=== PATIENT | female | born 1960 | race Caucasian/White ===

== ENCOUNTER → 2024-04-06 14:04 | Outpatient (BNVA) | payer OTHER, SELFPAY | PROVIDERS: Visit Provider Orthopaedic Surgery | DX: M54.9 Dorsalgia, unspecified (principal); Z01.818 Encounter for other preprocedural examination | CPT/HCPCS: 36415; 72110; 80053; 81003; 81015; 83036; 85025 ==

== ENCOUNTER → 2024-04-28 10:53 | Outpatient (BNVA) | payer OTHER, SELFPAY | PROVIDERS: Visit Provider Family Medicine | DX: Z01.818 Encounter for other preprocedural examination (principal) | CPT/HCPCS: 81003 ==

== ENCOUNTER → 2024-08-24 10:11 | Outpatient (BNVA) | payer MEDICARE, BC, SELFPAY | PROVIDERS: Visit Provider Orthopaedic Surgery | DX: M48.062 Spinal stenosis, lumbar region with neurogenic claudication (principal) | CPT/HCPCS: 99213 ==

== ENCOUNTER 2024-09-06 07:49 | Day surgery (SDC) | payer MEDICARE, BC, SELFPAY ==
[2024-09-06] VITALS (11 sets, daily range): BP systolic 110–131; BP diastolic 63–79; PULSE 54–74; RESP 15–22; TEMP 36.2–36.4; O2SAT 92–99; BMI 38.4
[2024-09-06] MEDS: sodium chloride 0.9% 1,000 ML 30 ML IV (08:19)
[2024-09-06 08:36] LABS: Glucose Point of Care 134 mg/dL (70-110)
--- NOTE | 2024-09-06 09:03 | W.PM.OPSUD ---
Surgery/Procedure H&P Update DATE OF PROCEDURE: September 06, 2024 DATE H&P PERFORMED: 08/24/24 H&P UPDATE INFORMATION: I have reviewed H&P completed within last 30 days, I have examined patient prior to procedure and No changes to prior documentation PREOP DIAGNOSIS: Lumbar stenosis with neurogenic claudication PLANNED PROCEDURE: Operation Date: 09/06/24 09:55 Proposed Procedures p Implantation of Neurostimulator Paddle(Not Applicable) - Ten Zhang DO s Insertion Neurostimulator Pulse Generato with battery(Not Applicable) - Ten Zhang DO
--- NOTE | 2024-09-06 09:25 | ANES.PREANE2 ---
Pre-Anesthetic Assessment Height/Weight: Height 5 ft 9 in Weight 260 lb Temp Pulse Resp BP Pulse Ox O2 Del Method 97.4 F L 74 18 126/79 98 Room Air 09/06/24 08:20 09/06/24 08:20 09/06/24 08:20 09/06/24 08:20 09/06/24 08:20 09/06/24 08:40 Preop Diagnosis: Lumbar stenosis with neurogenic claudication Operation Date: 09/06/24 09:55 Proposed Procedures p Implantation of Neurostimulator Paddle(Not Applicable) - Ten Zhang DO s Insertion Neurostimulator Pulse Generato with battery(Not Applicable) - Ten Zhang DO Was Beta Valeria taken within 24 hours: N/A Was Clonidine taken within 24 hours: N/A Last intake: Intake Last Liquid Date 09/05/24 Last Liquid Time 23:00 Last Solid Date 09/05/24 Last Solid Time 19:00 Social No alcohol and No tobacco Exam alert, oriented x 3, clear to auscultation bilaterally and regular rate & rhythm Airway Submandibular: within normal limits Cervical ROM: within normal limits Mallampati: Class II Dentition: full Anesthetic Plan ASA status: 3 Anesthesia: General Other: Patient states that she had prior vocal cord paralysis following intubation 2 years ago, was unable to speak for 2 weeks. She states she has been hoarse since this time. She has not seen an ENT NPO since yesterday History of type 2 diabetes on metformin. Preop BS 134 Hypertension on lisinopril Takes chronic tramadol for pain Patient has limited ambulation secondary to pain Discussed with patient that patient would require intubation due to prone positioning and surgical stimulation. We will plan on performing an LTA prior to intubation. She understands risk Plan for GETA Medications/Allergies Home Medications Medication Instructions Recorded Confirmed Last Taken Type estradiol 0.5 mg tablet 0.5 mg PO DAILY 04/28/24 09/05/24 09/05/24 History lisinopril 40 mg tablet 40 mg PO DAILY 04/28/24 09/05/24 09/05/24 History medroxyprogesterone 2.5 mg tablet 2.5 mg PO DAILY 04/28/24 09/05/24 09/05/24 History meloxicam 15 mg tablet 15 mg PO DAILY 04/28/24 09/05/24 09/03/24 History metformin 500 mg tablet 500 mg PO BID 04/28/24 09/05/24 09/05/24 History pregabalin 100 mg capsule 100 mg PO BID 04/28/24 09/05/24 09/05/24 History tramadol 50 mg tablet 50 mg PO DAILY PRN Pain (Scale 04/28/24 09/06/24 09/06/24 History Score 4-6) trazodone 50 mg tablet 50 mg PO .qhs 04/28/24 09/05/24 09/05/24 History Allergies Allergy/AdvReac Type Severity Reaction Status Date / Time No Known Allergies Allergy Unverified 09/06/24 08:13 Current Medications Generic Name Dose Route Start Last Admin Trade Name Freq PRN Reason Stop Dose Admin Sodium Chloride 1,000 mls @ 30 mls/hr 09/06/24 08:15 09/06/24 08:19 Sodium Chloride 0.9% IV 09/07/24 08:14 30 mls/hr .Q24H EMMY Administration PFSH Anesthesia Social History Smoking and tobacco/nicotine status: never used tobacco/nicotine Data Anesthesia Cardiac Studies: No Data to Display
[2024-09-06] MEDS: ceFAZolin 2,000 mg SDV 2000 MG IVP (09:39)
[2024-09-06] MEDS: VANCOMYCIN ADD-Vantage 1,000 MG VIAL 1000 MG XX (10:23)
[2024-09-06] MEDS: lidocaine-epi 1% 20 mL INJ INJECTION (10:23)
--- NOTE | 2024-09-06 10:53 | XR_ITS ---
WS: [id number] Thoracic spine, C-arm fluoroscopy views, 09/06/2024 Clinical Data: OR PICS Comparison: Thoracic spine, 02/07/2024 Findings: Dr. Zhang placed epidural stimulator leads into the lower thoracic space. XR/XR thoracic spine 2V 15027 Impression: Placement of thoracic epidural stimulator leads.
--- NOTE | 2024-09-06 10:57 | P.OP_ITS ---
Operative Report Date of procedure: September 06, 2024 Pre-op diagnosis: Lumbar stenosis with neurogenic claudication Post-op diagnosis: same Procedure done: 1. Neurostimulator paddle placement 2. Neurostimulator generator/battery placement Surgeon: Ten Zhang DO Estimated blood loss (mL): 25 Procedure: 1. Neurostimulator paddle placement 2. Neurostimulator generator/battery placement Patient is brought to the op suite after going anesthesia was placed in the prone position. All areas appear well-padded. Patient's prepped draped normal sterile fashion. Skin incision made over the T10-11 disc space. Subperiosteal dissection was made out to the transverse processes. Retractors were placed. Rongeur was used by down the spinous process. High-speed bur was used to take down part of the lamina as well as the medial aspect of facet joints. Curved curette was used to undermine where the ligament is and make a space and through the ligament. The Kerrison rongeur was then used to bite the ligament make a hole in the ligament to make space for the placement of the neurostimulator. The hockey-stick trial was then passed followed by placing the neurostimulator up to the T8 body. This was confirmed on C-arm guidance and confirmed with the [employer] rep. AP lateral fluoroscopy ensured that the stimulator was placed in good position. The wires were then sutured down the spinous process of T12. Skin incisions then made over the right flank and a pocket was made for the battery is going to go. The tunneler was then passed from the battery pocket to the location where the wires. The wires were then passed subcutaneously into the pocket. And then the wire was then placed in the battery and tucked underneath and sutured into position. With 0 Vicryl Monocryl suture. And then the laminectomy site was then closed with 0 Vicryl 2-0 Vicryl and Monocryl s uture. Sterile dressings were applied and patient was transferred to the PACU in stable condition.
[2024-09-06] MEDS: fentaNYL 50 mcg/mL INJ 2mL IVP (11:21)
[2024-09-06] MEDS: HYDROcodone-acetaminophen 5-325 mg Tablet 2 TAB PO (12:30)
--- NOTE | 2024-09-06 13:10 | ANE.PACU2 ---
Inpatient post-anesthesia follow up: Airway intact: Yes Vital signs: Temperature 97.6 F Pulse Rate 67 Respiratory Rate 18 Blood Pressure 125/67 Pulse Oximetry 97 Oxygen Delivery Me thod Room Air Oxygen Flow Rate Fraction of Inspir ed Oxygen Hydration adequate: Yes Nausea and vomiting: No Pain level: 1 Mental status: Baseline
== END 2024-09-06 13:10 | disposition home or self-care (01) ==
PROVIDERS: Visit Provider Orthopaedic Surgery
PROC: (CPT 63655; principal; 2024-09-06 09:35)
PROC: (CPT 63655; 2024-09-06 09:35)
DX: M48.062 Spinal stenosis, lumbar region with neurogenic claudication (principal); E11.9 Type 2 diabetes mellitus without complications; Z79.84 Long term (current) use of oral hypoglycemic drugs; I10 Essential (primary) hypertension; G89.29 Other chronic pain; Z79.891 Long term (current) use of opiate analgesic
CPT/HCPCS: 63655; 63685; 36416; 72070; 76000; 82962; C1713; J0330; J0690; J1100; J2405; J2704; J3010; J3370; J3490; J7030

== ENCOUNTER → 2024-09-19 15:17 | Outpatient (BNVA) | payer MEDICARE, BC, SELFPAY | PROVIDERS: Visit Provider Orthopaedic Surgery | DX: M48.062 Spinal stenosis, lumbar region with neurogenic claudication (principal) | CPT/HCPCS: 99024 ==

== ENCOUNTER → 2024-10-19 13:06 | Outpatient (BNVA) | payer MEDICARE, BC, SELFPAY | PROVIDERS: Visit Provider Orthopaedic Surgery | DX: M48.062 Spinal stenosis, lumbar region with neurogenic claudication (principal) | CPT/HCPCS: 72070; 72100; 99024 ==

== ENCOUNTER 2024-11-09 11:22 | Outpatient (CLI) | payer BC, MEDICARE, SELFPAY ==
--- NOTE | 2024-11-09 11:45 | MR_ITS ---
WS: [id number] MRI LUMBAR SPINE NONCONTRAST HISTORY: Back Pain COMPARISON: 02/16/2024 TECHNIQUE: Sagittal and axial multisequence imaging is submitted. Extensive fusion hardware in the lumbar spine. Posterior lumbar fusion extends from L2-S1. Anterior cervical fusion at L4-5 and L5-S1. Noted on a recent radiograph are fractures within the sacral pedicle screws. Posterior lumbar alignment appears near normal. Disc spaces are obscured by the hardware. Conus terminates normally at L1-2 disc level. L1-L2: Annular disc bulging with deformity of the thecal sac. Central disc protrusion. Ligamentum flavum and facet arthritis. Mild central and bilateral foraminal stenosis. There is mild distortion of the thecal sac secondary to the hardware. L2-L3: Large posterior laminectomy defect. No central stenosis. L3-L4: Large posterior laminectomy defects. No stenosis. L4-L5: Posterior laminectomy defects. No stenosis. There is mild clumping of the nerve roots in the thecal sac. L5-S1: No central stenosis or disc protrusion. Mild LEFT foraminal stenosis. MR/MR lumbar spine wo con* [id number] IMPRESSION: 1. Extensive posterior lumbar fusion hardware from L2-S1. Additional anterior fusion hardware at L4-5 and L5-S1. 2. Disc bulging and osteophytosis now present at L1-2. There is at least mild central and bilateral foraminal stenosis. Similar to the prior exam. 3. Large posterior laminectomy defects from L2-3 to L5-S1.
== END 2024-11-09 11:23 | disposition home or self-care (01) ==
PROVIDERS: Visit Provider Orthopaedic Surgery
DX: Z01.818 Encounter for other preprocedural examination (principal); M48.061 Spinal stenosis, lumbar region without neurogenic claudication; Z98.1 Arthrodesis status; M51.369 Other intervertebral disc degeneration, lumbar region without mention of lumbar back pain or lower extremity pain; M96.89 Other intraoperative and postprocedural complications and disorders of the musculoskeletal system; R93.7 Abnormal findings on diagnostic imaging of other parts of musculoskeletal system; M51.26 Other intervertebral disc displacement, lumbar region; M24.28 Disorder of ligament, vertebrae; M47.896 Other spondylosis, lumbar region; M48.07 Spinal stenosis, lumbosacral region
CPT/HCPCS: 36415; 72100; 72148; 80053; 81001; 83036; 85025; 99214

== ENCOUNTER → 2024-12-04 07:54 | Day surgery (SDC) | payer MEDICARE, BC, SELFPAY ==
[2024-12-04 07:52] VITALS: BMI 38.4
[2024-12-04 08:41] VITALS: BP 123/75; PULSE 50; RESP 16; TEMP 36.6; O2SAT 95
--- NOTE | 2024-12-04 08:52 | ANES.PREANE2 ---
Pre-Anesthetic Assessment Height/Weight: Height 1.75 m Weight 117.934 kg Temp Pulse Resp BP Pulse Ox O2 Del Method 97.8 F 50 L 16 123/75 95 Room Air 12/04/24 08:41 12/04/24 08:41 12/04/24 08:41 12/04/24 08:41 12/04/24 08:41 12/04/24 08:41 Preop Diagnosis: Lumbar stenosis with neurogenic claudication lumbar 2 to lumbar 3 decompres Operation Date: 12/04/24 09:30 Proposed Procedures p Lumbar Spine Decompression(Not Applicable) - Ten Zhang DO Last intake: Intake Last Liquid Date 12/03/24 Last Liquid Time 20:00 Last Solid Date 12/03/24 Last Solid Time 20:00 Airway Submandibular: within normal limits Cervical ROM: Other (pain with ROM limited on left side) Mallampati: Class III Dentition: chipped (bilateral front) Pulmonary None reported CV/HEM Arrythmia and Hypertension limited activity tolerance due to back pain. None reported Hepatic None reported GI None reported Metabolic Diabetes Mellitus and Hyperlipidemia (refuses statin) obesity Musc/skel Lower Back Pain Neuropsych None reported Anesthetic Plan ASA status: 3 Anesthesia: General Other Pertinent Information Patient states that she had prior vocal cord paralysis following intubation 2 years ago, was unable to speak for 2 weeks. She states she has been hoarse since this time. She has not seen an ENT NPO since yesterday History of type 2 diabetes on metformin. Hypertension on lisinopril Takes chronic tramadol for pain Patient has limited ambulation secondary to pain, spinal cord stimulator turned off. Discussed with patient that patient would require intubation due to prone positioning and surgical stimulation. Medications/Allergies Home Medications ?Medication ?Instructions ?Recorded ?Confirmed ?Last Taken ?Type estradiol 0.5 mg tablet 0.5 mg PO DAILY 04/28/24 11/30/24 11/30/24 History lisinopril 40 mg tablet 40 mg PO DAILY 04/28/24 11/30/24 11/30/24 History medroxyprogesterone 2.5 mg tablet 2.5 mg PO DAILY 04/28/24 11/30/24 11/30/24 History meloxicam 15 mg tablet 15 mg PO DAILY 04/28/24 11/30/24 11/30/24 History Held on 09/06/24. Instructions: Resume on 09/08/24. metformin 500 mg tablet 500 mg PO BID 04/28/24 11/30/24 12/03/24 History pregabalin 100 mg capsule 100 mg PO BID 04/28/24 11/30/24 12/04/24 History trazodone 50 mg tablet 50 mg PO .qhs 04/28/24 11/30/24 11/30/24 History tramadol 50 mg tablet 50 mg PO TID PRN Pain (Scale Score 11/09/24 11/30/24 12/04/24 Rx 4-6) 7 days #21 tabs Allergies Allergy/AdvReac Type Severity Reaction Status Date / Time No Known Allergies Allergy Verified 11/09/24 14:29 [facility] Anesthesia Social History Smoking and tobacco/nicotine status: never used tobacco/nicotine Data Anesthesia Cardiac Studies: No Data to Display
--- NOTE | 2024-12-04 09:11 | W.PM.OPSUD ---
Surgery/Procedure H&P Update DATE OF PROCEDURE: December 04, 2024 DATE H&P PERFORMED: 11/09/24 H&P UPDATE INFORMATION: I have reviewed H&P completed within last 30 days, I have examined patient prior to procedure and No changes to prior documentation PREOP DIAGNOSIS: Lumbar stenosis with neurogenic claudication lumbar 2 to lumbar 3 decompres PLANNED PROCEDURE: Operation Date: 12/04/24 09:30 Proposed Procedures p Lumbar Spine Decompression(Not Applicable) - Ten Zhang DO
[2024-12-04 09:16] LABS: Glucose Point of Care 118 mg/dL (70-110)
--- NOTE | 2024-12-04 09:24 | SUR.PREOP ---
09:10 IRREGULAR HEART RATE NOTED. PLACED ON 3 LEAD EKG. 12 LEAD EKG ORDERED PER ANESTHESIA.
--- NOTE | 2024-12-04 09:28 | ECG_ITS ---
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 Measurements Intervals [place] Rate: 56 P: 0 TN: 0 QRS: -39 QRSD: 102 T: 12 QT: 437 QTc: 424 Interpretive Statements ATRIAL FIBRILLATION WITH SLOW VENTRICULAR RESPONSE LEFT AXIS DEVIATION [QRS AXIS < -30] ANTEROSEPTAL MYOCARDIAL INFARCTION , OF INDETERMINATE AGE [40+ ms Q WAVE IN V1-V4] No previous ECG available for comparison Electronically Signed On 12-04-2024 16:40:43 CDT by Joe Lozano M.D. [email or web address]
[2024-12-04] MEDS: sodium chloride 0.9% 1,000 ML 30 ML IV (09:29)
--- NOTE | 2024-12-04 09:58 | SUR.PREOP ---
09:35 Dr ESTRELLA INTO EVALUATE PT, AND REVIEW PLAN OF CARE DUE TO NEW ONSET A FIB, AND EXPLAIN THE DANGERS OF PROCEEDING WITH SURGERY.
--- NOTE | 2024-12-04 10:19 | SUR.PREOP ---
PLAN OF CARE AND FURTHER CARDIAC TREATMENT REVIEWED WITH PT. PT DISCHARGED WITH VERBAL INSTRUCTIONS FROM DOCTOR ESTRELLA.
== END ==
PROVIDERS: PCP Orthopaedic Surgery; Visit Provider Orthopaedic Surgery
PROC: (CPT 63005; principal; 2024-12-04 09:20)
DX: M48.062 Spinal stenosis, lumbar region with neurogenic claudication (principal); I10 Essential (primary) hypertension; E11.9 Type 2 diabetes mellitus without complications; E78.5 Hyperlipidemia, unspecified; I48.91 Unspecified atrial fibrillation; E66.9 Obesity, unspecified; Z68.38 Body mass index [BMI] 38.0-38.9, adult; Z79.84 Long term (current) use of oral hypoglycemic drugs; Z79.899 Other long term (current) drug therapy; Z53.8 Procedure and treatment not carried out for other reasons
CPT/HCPCS: 36416; 82962; 93005; J1100; J2405; J2704; J3010; J3490; J7030; J9999

== ENCOUNTER → 2025-01-30 13:59 | Outpatient (BNVA) | payer MEDICARE, BC, SELFPAY | PROVIDERS: PCP Orthopaedic Surgery; Visit Provider Internal Medicine Cardiovascular Disease | DX: I48.91 Unspecified atrial fibrillation (principal); Z79.01 Long term (current) use of anticoagulants; R06.02 Shortness of breath; I10 Essential (primary) hypertension; E11.9 Type 2 diabetes mellitus without complications; Z79.4 Long term (current) use of insulin; E78.5 Hyperlipidemia, unspecified; R94.31 Abnormal electrocardiogram [ECG] [EKG] | CPT/HCPCS: 36415; 80048; 84443; 85025; 85610; 99204 ==

== ENCOUNTER 2025-03-08 09:03 | Outpatient (CLI) | payer MEDICARE, BC, SELFPAY ==
--- NOTE | 2025-03-08 | ECG_ITS ---
[place] Test Date: 2025-03-08 Pat Name: Tamiko Yadav Department: Room: Gender: Female Institution Director: : 1960 Requested By: Joe Lozano Order Number: [id number] Humza MD: CADY HIGGINS Interpretive Statements Lung unchanged pre/post procedure; Intraprocedure shortess of breath; Symptoms resoled by discharge NOTE: Please note that this is the electrocardiogram portion of the Lexiscan/Sestamibi stress test. The perfusion scan will be documented separately. DATA: Baseline heart rate was 52 beats per minute. Baseline blood pressure was 125/59 millimeters of mercury. Target heart rate was 158. Maximum heart rate achieved was 95. which was 60% of the predicted target heart rate. Maximum blood pressure was 125/77 millimeters of mercury. The reason for ending the test was completion of the protocol. The patient did not experience any symptoms. ELECTROCARDIOGRAM: BASELINE: Atrial fibrillation with slow heart rate, normal axis. Possible old anterior wall myocardial infarction EXERCISE: After Lexiscan injection, no ST-T changes suggestive of ischemic noted. No arrhythmia noted. CONCLUSION: Please note due to baseline abnormality of the EKG specificity and sensitivity of the EKG portion of LexiScan MIBI stress test will be low 1. EKG not suggestive of ischemia 2. Lexiscan injection unremarkable. 3. Perfusion scan will be documented separately. Electronically Signed On 03-26-2025 19:04:58 CDT by CADY HIGGINS [email or web address]
[2025-03-08 09:24] VITALS: BMI 38.4
--- NOTE | 2025-03-08 09:25 | NMCV_ITS ---
NM [place] perf SPECT r/s* [id number] Tamiko Yadav Age: 64 Gender: F : 1960 Exam Date: 03/08/2025 10:06 Ordering Phys: Joe Lozano MD ([email or web address]) Technologist: ALLY Rizzo Exam Location: [facility] Indications: cp STRESS TEST Please see separate stress test report in [facility] for full findings IMAGE PROTOCOL Rest/Stress 1 Lexiscan Day Radiopharmaceutical Dose (mCi) Administration Site Administered by Rest: Tc-99m 10.9 IV Elmira Salas [employer] Sestamibi Stress:Tc-99m 33 IV Elmira Salas, [employer] Sestamibi Rest: 08-Mar-2025 60 Discovery 630 Stress: 08-Mar-2025 30 Discovery 630 0.4mg Lexiscan. Images obtained in supine and prone position. SPECT RESULTS Technical Quality: Good Raw Data Analysis: Normal Image Corrections: No attenuation or motion correction applied Summed Stress Score: 0 Summed Rest Score: 0 Summed Difference Score: 0 PERFUSION FINDINGS SPECT images demonstrate homogeneous tracer distribution throughout the myocardium. FUNCTIONAL RESULTS (calculated via Gated SPECT) Stress Image LV EF (%): 66 Stress EDV (mL):115 TID: 1.02 Stress ESV (mL):39 Rest Image LV EF (%): 55 FUNCTIONAL FINDINGS: There is normal left ventricular systolic function. IMPRESSIONS Myocardial perfusion imaging is normal. Radha Kinsey MD (Electronically Signed) Final Date: 08 March 2025 12:43 S
[2025-03-08] MEDS: aminophylline 25 mg/mL SDV 20 mL IVP (10:59)
[2025-03-08 11:05] VITALS: BP 108/71; PULSE 80
--- NOTE | 2025-03-08 14:15 | USCV_ITS ---
Tamiko Yadav Age: 64 Gender: F : 1960 Exam Date: 03/08/2025 12:10 Ordering Phys: Joe Lozano MD ([email or web address]) Technologist: Exam Location: [facility] Indication: cp sob BP: 130 / 80 HR: 65 Rhythm: Sinus Technical Quality: Adequate MEASUREMENTS (Male / Female) Normal Values 2D ECHO LV Diastolic Diameter PLAX 4.5 cm 4.2 - 5.9 / 3.9 - 5.3 cm IVS Diastolic Thickness 1.3 cm 0.6 - 1.0 / 0.6 - 0.9 cm IVS Systolic Thickness 1.6 cm LVPW Diastolic Thickness 1.4 cm 0.6 - 1.0 / 0.6 - 0.9 cm LVPW Systolic Thickness 2.0 cm LVOT Diameter 2.2 cm LV Ejection Fraction 2D Teich 62.2 % LA Diameter 5.1 cm RA Systolic Volume 4C AL 57.2 ml RA Systolic Volume 4C MOD 56.2 ml Aorta at Sinotubular Diameter 3.0 cm IVC Diameter 1.6 cm M-MODE LA Ao Ratio MM 1.5 AV Cusp Separation MM 2.5 cm DOPPLER AV Peak Velocity 113.0 cm/s LVOT Peak Velocity 81.0 cm/s AV Area Cont Eq vti 3.2 cm squared AV Area Cont Eq pk 2.7 cm squared MV Peak Velocity 114.0 cm/s MV Area PHT 3.1 cm squared Mitral E to A Ratio 3.3 TV Peak Velocity 225.0 cm/s TR Peak Velocity 255.0 cm/s TR Peak Gradient 26.0 mmHg TV Peak E Velocity 103.0 cm/s PV Peak Velocity 85.0 cm/s FINDINGS Left Ventricle Normal left ventricular cavity size. Normal left ventricular systolic function, EF 62%. Mild concentric left ventricular hypertrophy. Normal left ventricular diastolic function. Right Ventricle Normal right ventricular size and systolic function Right Atrium Normal right atrial size Left Atrium Mild to moderate enlargement of the left atrium Mitral Valve Normal mitral valve function Aortic Valve Normal aortic valve function Tricuspid Valve Trace tricuspid valve regurgitation. Normal pulmonary pressure Pulmonic Valve Normal pulmonic valve function Pericardium No pericardial effusion Aorta Normal size of aortic root and ascending aorta IVC Normal IVC size CONCLUSIONS 1. Normal LV function, EF 62% 2. Mild concentric left ventricular hypertrophy 3. Mild to moderate enlargement of the left atrium 4. Normal left ventricular diastolic function 5. Normal right ventricular size and function 6. No significant valvular abnormalities Marlo Mackey MD, FACC (Electronically Signed) Final Date: 13 March 2025 09:48 S
== END 2025-03-08 09:04 | disposition home or self-care (01) ==
LOC: CDL 09:06
PROVIDERS: PCP Orthopaedic Surgery; Visit Provider Internal Medicine Cardiovascular Disease
DX: R06.09 Other forms of dyspnea (principal); I48.91 Unspecified atrial fibrillation; I51.7 Cardiomegaly; R93.1 Abnormal findings on diagnostic imaging of heart and coronary circulation
CPT/HCPCS: 36415; 78452; 93017; 93306; 96374; 96375; A9500; J0280; J2785

== ENCOUNTER → 2025-04-12 10:47 | Outpatient (BNVA) | payer MEDICARE, BC, SELFPAY | PROVIDERS: PCP Orthopaedic Surgery; Visit Provider Orthopaedic Surgery | DX: M48.061 Spinal stenosis, lumbar region without neurogenic claudication (principal); M48.062 Spinal stenosis, lumbar region with neurogenic claudication | CPT/HCPCS: 99213 ==

== ENCOUNTER → 2025-04-23 11:00 | Outpatient (BNVA) | payer MEDICARE, BC, SELFPAY | PROVIDERS: PCP Orthopaedic Surgery; Referring Provider Orthopaedic Surgery; Visit Provider Nurse Practitioner Family | DX: M48.062 Spinal stenosis, lumbar region with neurogenic claudication (principal) | CPT/HCPCS: 99214 ==

== ENCOUNTER 2025-05-03 10:45 | Outpatient (CLI) | payer MEDICARE, BC, SELFPAY ==
--- NOTE | 2025-05-03 11:00 | MR_ITS ---
WS: [id number] MRI LUMBAR SPINE NONCONTRAST TECHNIQUE: Sagittal T1, T2 and STIR imaging. Axial T1 and T2 imaging. CLINICAL INFORMATION: Back pain COMPARISON: MRI 11/09/2024 FINDINGS: Again seen is the extensive fusion hardware in the lumbar spine extending from L3-S1. Anterior fusion at L4-L5 and L5-S1. Susceptibility artifact from hardware degrades some images. Disc bulging worse at L2-3 with endplate degenerative changes. Incidental Tarlov cyst in the sacrum. No acute appearing compression fractures. L1-L2: Mild facet arthropathy. Spinal canal and foramen are patent. L2-L3: Disc bulging and combination with facet arthropathy and ligamentum flavum hypertrophy results in moderate to severe central canal stenosis slightly progressed since 02/16/2024 by my measurements. Narrowing of the subarticular recess bilaterally. Moderate bilateral foraminal narrowing. Spinal canal at this level measures approximately 5 mm at the narrowest dimension. Hardware artifact obscures some detail. L3-L4: Decompressive laminectomy defects. Spinal canal and foramen appear patent. L4-L5: Decompressive laminectomy defects. Mild bilateral bony foraminal narrowing. Spinal canal is patent. Evidence of arachnoiditis. L5-S1: Decompressive laminectomy defects. Moderate LEFT and mild RIGHT foraminal narrowing. Evidence of arachnoiditis. MR/MR lumbar spine wo con* [id number] IMPRESSION: 1. Dorsal fusion hardware L3-S1 with pedicle screw fixation and laminectomy de fects. Anterior fusion L4-5 and interbody fusion L3-L5. 2. Moderate to severe central canal stenosis L2-3 due to central disc bulging in combination with facet arthropathy and ligamentum flavum hypertrophy. 3. Moderate bilateral L2-3 foraminal narrowing. 4. Mild bilateral L4-5 and moderate LEFT L5-S1 foraminal narrowing. 5. Evidence of arachnoiditis L3-L5 similar to the prior studies
== END 2025-05-03 10:46 | disposition home or self-care (01) ==
LOC: RAD 10:45
PROVIDERS: PCP Orthopaedic Surgery; Visit Provider Orthopaedic Surgery
DX: I48.20 Chronic atrial fibrillation, unspecified (principal); Z79.01 Long term (current) use of anticoagulants; M48.061 Spinal stenosis, lumbar region without neurogenic claudication; R94.31 Abnormal electrocardiogram [ECG] [EKG]; I10 Essential (primary) hypertension; E78.5 Hyperlipidemia, unspecified; E11.9 Type 2 diabetes mellitus without complications; Z79.84 Long term (current) use of oral hypoglycemic drugs
CPT/HCPCS: 72148; 99213; 99214

== ENCOUNTER → 2025-05-24 10:28 | Outpatient (BNVA) | payer MEDICARE, BC, SELFPAY | PROVIDERS: PCP Orthopaedic Surgery; Visit Provider Nurse Practitioner Family | DX: M48.062 Spinal stenosis, lumbar region with neurogenic claudication (principal) | CPT/HCPCS: 99214 ==

== ENCOUNTER → 2025-06-19 13:14 | Outpatient (BNVA) | payer MEDICARE, BC, SELFPAY | PROVIDERS: PCP Orthopaedic Surgery; Visit Provider Nurse Practitioner Family | DX: M79.10 Myalgia, unspecified site (principal); M48.062 Spinal stenosis, lumbar region with neurogenic claudication | CPT/HCPCS: 20553; 99214; J1010; J3490 ==

== ENCOUNTER → 2025-07-03 11:11 | Outpatient (BNVA) | payer MEDICARE, BC, SELFPAY | PROVIDERS: PCP Orthopaedic Surgery; Visit Provider Nurse Practitioner Family | DX: M19.012 Primary osteoarthritis, left shoulder (principal); M48.062 Spinal stenosis, lumbar region with neurogenic claudication | CPT/HCPCS: 20610; 99214; J1010; J3490 ==

== ENCOUNTER → 2025-07-24 13:11 | Outpatient (BNVA) | payer MEDICARE, BC, SELFPAY | PROVIDERS: Visit Provider Orthopaedic Surgery | DX: Z01.818 Encounter for other preprocedural examination (principal); M48.062 Spinal stenosis, lumbar region with neurogenic claudication | CPT/HCPCS: 36415; 80053; 81001; 85025; 99214 ==